=== PATIENT | female | born 1955 | race Caucasian/White ===

== ENCOUNTER 2024-06-24 18:37 | Emergency (ER) | payer MEDICARE, MEDICAID, OTHER, SELFPAY ==
[2024-06-24 18:38] VITALS: BP 163/116; BP 176/76; PULSE 82; PULSE 84; RESP 16; RESP 20; TEMP 36.4; O2SAT 97; O2SAT 99; BMI 19.9
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
[2024-06-24] MEDS: TET,DIPH,PERTUSS(ACELL),VAC/PF 0.5 ML SYRINGE IM (20:10)
[2024-06-24] MEDS: BACITRACIN OINT 0.9 GM PCKT 1 APPLIC TOP (20:13)
[2024-06-24 21:00] VITALS: BP 179/79; PULSE 69; RESP 16; O2SAT 97
== END 2024-06-24 21:30 | disposition home or self-care (01) ==
PROVIDERS: Emergency Provider Emergency Medicine
DX: S00.81XA Abrasion of other part of head, initial encounter (principal); S00.83XA Contusion of other part of head, initial encounter; H93.12 Tinnitus, left ear; V43.52XA Car driver injured in collision with other type car in traffic accident, initial encounter; R22.0 Localized swelling, mass and lump, head; W22.10XA Striking against or struck by unspecified automobile airbag, initial encounter; R40.2412 Glasgow coma scale score 13-15, at arrival to emergency department; Z23 Encounter for immunization
CPT/HCPCS: 70450; 70486; 72125; 90471; 99284; 90715

== ENCOUNTER 2024-08-12 00:02 | Emergency (ER) | payer MEDICARE, SELFPAY ==
[2024-08-12 00:07] VITALS: BP 155/78; PULSE 104; RESP 20; TEMP 36.7; O2SAT 98; BMI 19.5
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
[2024-08-12] MEDS: LIDOCAINE 1% W/EPI 10ML 10 ML SUBCUT (00:49)
[2024-08-12] MEDS: BACITRACIN OINT 0.9 GM PCKT 1 APPLIC TOP (01:26)
[2024-08-12 01:30] VITALS: BP 119/80; PULSE 90; RESP 24; O2SAT 97
== END 2024-08-12 01:41 | disposition home or self-care (01) ==
PROVIDERS: Emergency Provider Family Medicine
DX: S01.81XA Laceration without foreign body of other part of head, initial encounter (principal); W10.1XXA Fall (on)(from) sidewalk curb, initial encounter
CPT/HCPCS: 12031; 99283

== ENCOUNTER → 2024-11-05 15:27 | Outpatient (CLI) | payer OTHER, SELFPAY ==
--- NOTE | 2024-11-05 15:34 | DI.MRI.S_ITS ---
PROCEDURE: MR BRAIN (IAC) WWO CON INDICATIONS: HEARING LOSS TECHNIQUE: Noncontrast sagittal T1 spin echo, axial FLAIR, axial gradient echo, axial diffusion and ADC through the brain. Axial thin-slice 3D CISS, coronal TruFISP, axial T1 spin echo with fat saturation through the internal auditory canals. After the administration of contrast, thin slice axial and coronal T1 spin echo with fat saturation through the internal auditory canals, and axial and coronal and sagittal T1 spin echo with fat saturation through the brain. COMPARISON: [facility], CT, CT CERVICAL SPINE WO CON, 06/24/2024, 19:57. [facility], CT, CT HEAD/BRAIN WO CON, 06/24/2024, 19:57. FINDINGS: Image quality: Excellent. Cerebellopontine angles: Centered on the right cerebellopontine angle and the 7th and 8th cranial nerve complex, there is a densely enhancing mass lesion with impression on the karlos and extension into the right internal auditory canal. Lesion measures overall 2.1 by 3.1 cm axial by 1.8 cm cranial caudal, and widens the internal auditory canal. No seated cerebral edema CSF spaces: Ventricles are normal in size and shape. No extra-axial fluid collections. Basal cisterns are patent. Brain: No intracranial bleeds or mass effects. Cotton-white matter interface is intact. No abnormal intracranial enhancement. Diffusion weighted images demonstrate no acute ischemic insults. Brainstem appears normal. Normal intravascular flow voids are present. Skull and face: Calvarial marrow signal is normal. Orbits appear normal. Sinuses: Sinuses and mastoids are clear. 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 on 11/06/2024 at 12:44
== END ==
PROVIDERS: Referring Provider Otolaryngology; Visit Provider Otolaryngology
DX: D33.3 Benign neoplasm of cranial nerves (principal); H90.3 Sensorineural hearing loss, bilateral
CPT/HCPCS: 70553; A9579